=== PATIENT | male | born 1960 | race Caucasian/White ===

== ENCOUNTER 2020-02-06 18:45 | Inpatient (IN) ==
[2020-02-06] MEDS ORDERED: SODIUM CHLORIDE 0.9% 1,000 ML IV STA (20:20)
[2020-02-06 20:43] LABS: Basophils % 0.1 % (0.0-0.8); Hematocrit 42.4 VOL% (42.0-52.0); Immature Granulocytes % 0.7 %; Immature Granulocytes Absolute 0.05 #; Lymphocytes # 0.9 10*3/uL (1.4-4.0); Lymphocytes % 11.7 % (21.2-54.2); Mean Corpuscular HGB Conc 35.4 GM/DL (32-36); Mean Corpuscular Volume 83.5 FL (87-102); Mean Platelet Volume 11.7 FL (9.6-12.0); Monocytes % 6.2 % (1.7-12.7); Neutrophils % 81.3 % (38.7-73.9); Platelet Count 172 T/CUMM (130-400); Red Blood Count 5.08 MC/CUMM (3.8-5.5); White Blood Count 7.4 T/CUMM (4-12)
[2020-02-06 21:06] LABS: Albumin 3.1 G/DL (3.4-5.0); Calcium 8.7 MG/DL (8.5-10.1); Osmolality,Calculated 272.1 MOS/KG (273-304); Total Protein 7.6 G/DL (6.4-8.3)
[2020-02-06] MEDS ORDERED: ONDANSETRON 4 MG/2 ML VIAL IV PRN (22:11)
[2020-02-06] MEDS ORDERED: DEXTROSE 50% 25 GM/50 ML VIAL IV PRN (22:11)
[2020-02-06] MEDS ORDERED: GLUCAGON 1 MG VIAL IM PRN (22:11)
[2020-02-06] MEDS ORDERED: CETIRIZINE 10 MG TABLET PO PRN (22:18)
[2020-02-06] MEDS ORDERED: ENOXAPARIN 40 MG/0.4 ML SYRINGE SUBCUT SCH (22:30)
[2020-02-06] MEDS ORDERED: DEXTROSE 50% 25 GM/50 ML SYRINGE IV PRN (22:30)
[2020-02-07] MEDS ORDERED: SODIUM CHLORIDE 0.9% 100 ML IV ONE (00:03)
[2020-02-07] MEDS: cefTRIAXone 1,000 MG in SYRINGE 1 EACH IV SCH ×2 (00:03→23:20)
[2020-02-07] MEDS: FAMOTIDINE 20 MG TABLET PO SCH ×3 (00:04→21:15)
[2020-02-07] MEDS: ENOXAPARIN 40 MG/0.4 ML SYRINGE SUBCUT SCH ×3 (00:08→21:15)
[2020-02-07] MEDS: ALBUTEROL INHALER 18 GM INH SCH ×4 (01:00→19:20)
[2020-02-07 05:30] LABS: Albumin 2.8 G/DL (3.4-5.0); Bilirubin,Total 1.7 MG/DL (0.2-1.0); Calcium 8.2 MG/DL (8.5-10.1); Ferritin 1584.9 ng/ml (26-388); Total Protein 6.9 G/DL (6.4-8.3)
[2020-02-07 06:53] LABS: Basophils % 0.1 % (0.0-0.8); Hematocrit 40.9 VOL% (42.0-52.0); Hemoglobin 14.1 GM/DL (14.0-18.0); Immature Granulocytes % 0.6 %; Immature Granulocytes Absolute 0.04 #; Lymphocytes # 1.3 10*3/uL (1.4-4.0); Lymphocytes % 17.8 % (21.2-54.2); Mean Corpuscular HGB Conc 34.5 GM/DL (32-36); Mean Corpuscular Volume 84.7 FL (87-102); Mean Platelet Volume 12.6 FL (9.6-12.0); Monocytes % 7.2 % (1.7-12.7); Neutrophils % 74.3 % (38.7-73.9); Platelet Count 164 T/CUMM (130-400); Red Blood Count 4.83 MC/CUMM (3.8-5.5); Red Cell Distribution Width 12.1 % (9.3-17.3); White Blood Count 7.1 T/CUMM (4-12)
[2020-02-07] MEDS: ASCORBIC ACID 500 MG TABLET PO SCH (09:44)
[2020-02-07] MEDS: ZINC SULFATE 220 MG CAPSULE PO SCH (09:45)
[2020-02-07] MEDS: CHOLECALCIFEROL 1,000 UNIT TABLET PO SCH (09:45)
[2020-02-07] MEDS: DEXAMETHASONE 10 MG/1 ML VIAL IV SCH (09:46)
[2020-02-07 17:48] LABS: Basophils % 0.1 % (0.0-0.8); Hematocrit 42.7 VOL% (42.0-52.0); Hemoglobin 14.5 GM/DL (14.0-18.0); Immature Granulocytes % 0.7 %; Immature Granulocytes Absolute 0.05 #; Lymphocytes # 0.8 10*3/uL (1.4-4.0); Lymphocytes % 10.7 % (21.2-54.2); Mean Corpuscular Volume 86.6 FL (87-102); Mean Platelet Volume 11.3 FL (9.6-12.0); Monocytes % 2.3 % (1.7-12.7); Neutrophils % 86.2 % (38.7-73.9); Platelet Count 211 T/CUMM (130-400); Red Blood Count 4.93 MC/CUMM (3.8-5.5); Red Cell Distribution Width 12.3 % (9.3-17.3); White Blood Count 7.1 T/CUMM (4-12)
[2020-02-07 18:38] LABS: Lymphocytes 10 % (20-55); Platelet Estimate Adequate; Segmented Neutrophils 86 % (50-85); Total Cells Counted 100
[2020-02-07 22:10] LABS: Bilirubin,Urine Negative (Negative); Blood, Urine Negative (Negative); Glucose,Urine (UA) Negative (Negative); Ketones,Urine Negative (Negative); Mucus,Urine Occasional /LPF (Occasional); Nitrite,Urine Negative (Negative); Protein,Urine Negative; RBC,Urine 3 /HPF (0-4); Squamous Epithelial Cell,Urine Occasional /HPF (0-10); Urine Appearance CLEAR (Clear); Urine Color Yellow (Yellow); Urine Specific Gravity > 1.060 (1.001-1.035); WBC,Urine 1 /HPF (0-6)
[2020-02-08] MEDS: ALBUTEROL INHALER 18 GM INH SCH ×4 (01:17→18:00)
[2020-02-08 05:12] LABS: Albumin 2.6 G/DL (3.4-5.0); Bilirubin,Total 0.8 MG/DL (0.2-1.0); Calcium 8.8 MG/DL (8.5-10.1); Osmolality,Calculated 279.5 MOS/KG (273-304); Total Protein 6.9 G/DL (6.4-8.3)
[2020-02-08] MEDS: DEXAMETHASONE 10 MG/1 ML VIAL IV SCH (08:25)
[2020-02-08] MEDS: ACETAMINOPHEN 325 MG TABLET PO PRN (08:26)
[2020-02-08] MEDS: FAMOTIDINE 20 MG TABLET PO SCH ×2 (08:26→22:33)
[2020-02-08] MEDS: CHOLECALCIFEROL 1,000 UNIT TABLET PO SCH (08:26)
[2020-02-08] MEDS: ASCORBIC ACID 500 MG TABLET PO SCH (08:26)
[2020-02-08] MEDS: ENOXAPARIN 40 MG/0.4 ML SYRINGE SUBCUT SCH ×2 (08:26→22:33)
[2020-02-08] MEDS ORDERED: ZALEPLON 5 MG CAPSULE PO PRN (14:46)
[2020-02-08] MEDS: cefTRIAXone 1,000 MG in SYRINGE 1 EACH IV SCH (22:33)
[2020-02-09] MEDS: ALBUTEROL INHALER 18 GM INH SCH ×2 (01:55→09:04)
[2020-02-09] MEDS: ACETAMINOPHEN 325 MG TABLET PO PRN (01:55)
[2020-02-09 07:11] LABS: Basophils % 0.2 % (0.0-0.8); Hematocrit 39.6 VOL% (42.0-52.0); Hemoglobin 13.8 GM/DL (14.0-18.0); Immature Granulocytes % 0.6 %; Immature Granulocytes Absolute 0.06 #; Lymphocytes # 1.7 10*3/uL (1.4-4.0); Lymphocytes % 15.7 % (21.2-54.2); Mean Corpuscular HGB Conc 34.8 GM/DL (32-36); Mean Platelet Volume 11.8 FL (9.6-12.0); Monocytes % 7.4 % (1.7-12.7); Neutrophils % 76.1 % (38.7-73.9); Platelet Count 254 T/CUMM (130-400); Red Blood Count 4.66 MC/CUMM (3.8-5.5); Red Cell Distribution Width 12.5 % (9.3-17.3); White Blood Count 10.8 T/CUMM (4-12)
[2020-02-09 07:30] LABS: Albumin 2.5 G/DL (3.4-5.0); Bilirubin,Total 1.5 MG/DL (0.2-1.0); Calcium 8.5 MG/DL (8.5-10.1); Osmolality,Calculated 279.5 MOS/KG (273-304); Total Protein 6.8 G/DL (6.4-8.3)
[2020-02-09 07:32] LABS: Risk Ratio 5.42; VLDL CHOLESTEROL 29.4 MG/DL
[2020-02-09 08:40] LABS: Band Neutrophils 3 % (0-10); Lymphocytes 15 % (20-55); Platelet Estimate Normal; Segmented Neutrophils 75 % (50-85); Total Cells Counted 100
[2020-02-09] MEDS: DEXAMETHASONE 10 MG/1 ML VIAL IV SCH (09:02)
[2020-02-09] MEDS: ASCORBIC ACID 500 MG TABLET PO SCH (09:03)
[2020-02-09] MEDS: ENOXAPARIN 40 MG/0.4 ML SYRINGE SUBCUT SCH (09:03)
[2020-02-09] MEDS: CHOLECALCIFEROL 1,000 UNIT TABLET PO SCH (09:03)
[2020-02-09] MEDS: ZINC SULFATE 220 MG CAPSULE PO SCH (09:03)
[2020-02-09] MEDS: FAMOTIDINE 20 MG TABLET PO SCH (09:03)
[2020-02-09] MEDS ORDERED: ASPIRIN EC 81 MG TABLET PO SCH (11:30)
[2020-02-09 11:44] VITALS: BP 102/63
[2020-02-09] MEDS ORDERED: CEFUROXIME 500 MG TABLET PO SCH (21:00)
[2020-02-09] MEDS ORDERED: DEXAMETHASONE 4 MG TABLET PO SCH (21:00)
[2020-02-09] MEDS ORDERED: AZITHROMYCIN 250 MG TABLET PO SCH (22:30)
== END 2020-02-09 13:02 | disposition home or self-care (01) | DRG 177 ==
LOC: N.ED 18:45 → N.EDINP 22:11 → SUATTDRO 22:11 → N.2E 02-07 16:55
PROVIDERS: ADMIT Internal Medicine; ATTEND Family Medicine